=== PATIENT | female | born 2005 | race Two or more races ===

== ENCOUNTER → 2025-01-10 | Outpatient (CLI) | payer MEDICAID, SELFPAY ==
--- NOTE | 2025-01-10 09:09 | XR_ITS ---
Examination: Lumbar spine, 5 views Technique: Lumbar spine AP, lateral, coned lateral lower lumbar spine, bilateral obliques 5 views Exam date and time: January 10, 2025, 0924 hours INDICATIONS: Low back pain years. FINDINGS: Satisfactory alignment lumbar vertebral bodies No lumbar fracture. No lumbar degenerative disc disease No spondylolisthesis IMPRESSION: No lumbar fracture No lumbar degenerative disc disease
== END | disposition home or self-care (01) ==
PROVIDERS: PCP Physician Assistant; Referring Provider Chiropractor; Visit Provider Chiropractor
DX: M54.50 Low back pain, unspecified (principal)
CPT/HCPCS: 72110

== ENCOUNTER 2025-02-14 11:56 | Emergency (ER) | payer MEDICAID, SELFPAY ==
[2025-02-14 12:38] VITALS: BP 137/86; PULSE 108; RESP 18; TEMP 37.1; O2SAT 99; BMI 46.3
[2025-02-14] MEDS: FLUCONAZOLE 150 MG TABLET PO (12:51)
--- NOTE | 2025-02-14 12:59 | PD.EDFMALE ---
ED Female Urogenital RME/HPI General Chief complaint: Urogenital-Female Stated complaint: VAG PAIN Time Seen by Provider: 02/14/25 12:24 Source: patient Arrival date/time: 02/14/25 11:56 19-year-old female with no known medical history presents to the emergency room with a chief complaint of white stringy discharge and peeling in her vaginal area x 3 days Mode of arrival: ambulatory Limitations: no limitations Related Data Home Medications ?Medication ?Instructions ?Recorded ?Confirmed albuterol sulfate 90 mcg/actuation 2 puff inhalation Q6H PRN 07/09/17 01/26/20 aerosol inhaler Shortness Of Breath Or Wheezing ibuprofen 600 mg tablet 600 mg PO Q6H PRN Pain 01/26/20 01/26/20 Previous Rx's ?Medication ?Instructions ?Recorded hydrocodone 5 mg-acetaminophen 325 1 tab PO TID #15 tabs 01/26/20 mg tablet (Bigler) naproxen 500 mg tablet (Naprosyn) 500 mg PO BID #60 tabs 01/26/20 montelukast 10 mg tablet 10 mg PO QDAY #30 tabs 07/07/20 (Singulair) sulfamethoxazole 800 1 tab PO BID #14 tabs 02/14/25 mg-trimethoprim 160 mg tablet (Bactrim DS) Allergies Allergy/AdvReac Type Severity Reaction Status Date / Time No Known Allergies Allergy Verified 07/07/20 21:03 Review of Systems Review of Systems Systems Reviewed: All systems reviewed, normal except as documented Constitutional Constitutional: Reports system reviewed and no additional complaints, except as documented, Denies fatigue, Denies fever(s), Denies headache(s) and Denies weakness Eyes Eyes: Reports system reviewed and no additional complaints, except as documented, Denies blurry vision and Denies change in vision ENT Ears, Nose, Mouth, and Throat: Reports system reviewed and no additional complaints, except as documented, Denies otalgia, Denies headache(s), Denies nasal congestion, Denies throat swelling and Denies vertigo Cardiovascular Cardiovascular: Reports system reviewed and no additional complaints, except as documented, Denies chest pain, Denies dyspnea and Denies dyspnea on exertion Respiratory Respiratory: Reports system reviewed and no additional complaints, except as documented, Denies chest congestion, Denies cough, Denies dyspnea, Denies dyspnea on exertion and Denies wheezing Gastrointestinal Gastrointestinal: Reports system reviewed and no additional complaints, except as documented, Denies abdominal pain, Denies cramping, Denies nausea and Denies vomiting Genitourinary Genitourinary: Reports system reviewed and no additional complaints, except as documented, Reports vaginal discharge, Reports vaginal dryness, Reports vaginal odor and Reports vaginal pruritus Musculoskeletal Musculoskeletal: Reports system reviewed and no additional complaints, except as documented and Denies back pain Integumentary/Breasts Skin/Breast: Reports system reviewed and no additional complaints, except as documented and Denies wounds Neurologic Neurologic: Reports system reviewed and no additional complaints, except as documented, Denies confusion, Denies headache(s), Denies lack of coordination, Denies vertigo and Denies weakness Psychiatric Psychiatric: Reports system reviewed and no additional complaints, except as documented, Denies anxiety, Denies confusion, Denies depression, Denies paranoia, Denies suicidal ideation and Denies tactile hallucinations Endocrine Endocrine: Reports system reviewed and no additional complaints, except as documented and Denies fatigue Hematologic/Lymphatic Hematologic/Lymphatic: Reports system reviewed and no additional complaints, except as documented and Denies lymphadenopathy Allergic/Immunologic Allergic/Immunologic: Reports system reviewed and no additional complaints, except as documented, Denies throat swelling, Denies urticaria and Denies wheezing Past Medical History Past Medical History CARDIAC: Negative Cardiac Disorders or Congestive Heart Failure RESPIRATORY: Positive Asthma; Negative Chronic Obstructive Pulmonary Disease (COPD), Smoking or Intubation GASTROINTESTINAL: Positive Obesity; Negative Gastrointestinal Disorders GENITOURINARY: Negative Renal Disease REPRODUCTIVE: Negative Previous Pregnancies MENOPAUSE AGE: 10 ENDOCRINE: Negative Diabetes Mellitus Type 1 or Diabetes Mellitus Type 2 HEMATOLOGIC: Negative Sickle Cell Disease OTHER HISTORY: Negative Hospitalization Social History SMOKING STATUS: Never smoker SUBSTANCE USE: does not use ED Exam General Limitations: Present no limitations General appearance: Present alert and in no apparent distress Head Head exam: Present atraumatic Eye Eye exam: Present normal appearance, PERRL and EOMI ENT ENT exam: Present normal exam, normal oropharynx and mucous membranes moist Neck Neck exam: Present normal inspection, full ROM and trachea midline Chest Chest inspection: Present normal inspection and symmetric chest wall rise Respiratory Respiratory exam: Present normal lung sounds bilaterally Cardiovascular Cardiovascular exam: Present regular rate, normal rhythm and normal heart sounds Abdominal Exam Abdominal exam: Present soft and normal bowel sounds Extremities Exam Extremities exam: Present normal inspection and full ROM Back Exam Back exam: Present normal inspection and full ROM Neurological Exam Neurological exam: Present alert, oriented X3 and CN II-XII intact Psychiatric Psychiatric exam: Present normal affect and normal mood Skin Skin exam: Present warm, dry, intact and normal color Course Quality Measures none Orders Category Date Time Status Fluconazole [Diflucan] Med 02/14/25 12:38 Discontinued 150 mg PO X1 ONE Vital Signs Vital signs: Vital Signs Temperature 98.7 F 02/14/25 12:38 Pulse Rate 108 H 02/14/25 12:38 Respiratory Rate 18 02/14/25 12:38 Blood Pressure 137/86 H 02/14/25 12:38 Pulse Oximetry (%) 99 02/14/25 12:38 Oxygen Delivery Method Room Air 02/14/25 12:38 Urogenital - Female MDM Narrative MDM Narrative:: 19-year-old female with no known medical history presents to the emergency room with a chief complaint of white stringy discharge and peeling in her vaginal area x 3 days Patient is hemodynamically stable and in no apparent distress Patient states the stringy discharge has been going on for the last 3 days and have progressively gotten worse. Patient was discharged and educated to follow-up with primary care provider in the next 24 to 48 hours and return to the emergency room for any evidence of worsening signs or symptoms Patient data External records reviewed:: [facility] previous records Clinical information provided by:: patient Social determinants that could affect healthcare access:: none Patient has the following chronic illnesses:: No chronic illness How is presenting disease/condition affected by chronic disease/condition?: no chronic disease Evaluation data The following diagnostics were reviewed and interpreted by me:: lab results and radiology exam(s) Lab and/or radiology exams considered but not ordered:: Labs and radiology exams considered and ordered Interpretation Summary: N/A Medications / Prescriptions Medications or Prescriptions considered but not ordered:: Medication given Medication administrations:: Medication Administration History Discontinued Medications Fluconazole (Fluconazole 150 Mg Tablet) 150 mg PO X1 ONE Stop: 02/14/25 12:39 Last Admin: 02/14/25 12:51 Dose: 150 mg Documented By: OA Medication given Consultations Consultation(s) initiated? (list below): No Diagnosis Urogenital Female Differential Diagnosis: urinary tract infection, bacterial vaginosis and other (Use infection) Most likely diagnosis given after review of the tests above:: Vaginal candidiasis Admission Indicated Admission indicated?: not indicated Admission Request Was there a request for admission?: No Disposition Plan Disposition Plan: Discharge Discharge Attestation Discharge Attestation: The patient and all family members were given an opportunity to ask questions and understood the discharge instructions. Discharge instructions specifically effects, indications for sooner follow up or return to the emergency department, and the expected course of current diagnosis. Patient condition: Stable Discharge Plan Plan Patient Disposition: HOME (Self Care) Discharge Disposition comment: Stable Prescriptions/Referrals Prescriptions/Med Rec: New sulfamethoxazole-trimethoprim [Bactrim DS] 800-160 mg tablet 1 tab PO BID Qty: 14 0RF No Action albuterol sulfate 90 mcg/actuation Hfa Aerosol Inhaler 2 puff INHALATION Q6H PRN (Reason: Shortness Of Breath Or Wheezing) montelukast [Singulair] 10 mg tablet 10 mg PO QDAY Qty: 30 0RF ibuprofen 600 mg Tablet 600 mg PO Q6H PRN (Reason: Pain) naproxen [Naprosyn] 500 mg tablet 500 mg PO BID Qty: 60 0RF hydrocodone-acetaminophen [Bigler] 5-325 mg tablet 1 tab PO TID MDD 3 Qty: 15 0RF Problem List Clinical Impression: Bacterial vaginosis Patient/Caregiver Discharge Instructions Education Materials: Bacterial Vaginosis Additional Instructions: Please follow-up with your primary care provider in the next 24 to 48 hours For any evidence of worsening signs or symptoms return the emergency room immediately Print Language: Chadian Stand Alone Forms: Yu Award Info., Work/School Release, Patient Portal Info Letter
== END 2025-02-14 20:07 | disposition home or self-care (01) ==
LOC: SERX 14:01
PROVIDERS: Emergency Provider Emergency Medicine; PCP Physician Assistant
DX: N76.0 Acute vaginitis (principal); B96.89 Other specified bacterial agents as the cause of diseases classified elsewhere
CPT/HCPCS: 99281; A9270

== ENCOUNTER → 2025-02-20 | Outpatient (CLI) | payer MEDICAID, SELFPAY ==
--- NOTE | 2025-02-20 | XR_ITS ---
Examination: Foot, left, 3 views Technique: AP, oblique, lateral views foot, 3 views Date and time of exam: February 20, 2025, 1148 hours INDICATIONS: Left foot and ankle pain 3 months. FINDINGS: Adequate bone density. No fracture or dislocation. No plantar or posterior bony calcaneal spurs IMPRESSION: Negative for osseous abnormality
--- NOTE | 2025-02-20 | XR_ITS ---
EXAMINATION: Ankle, left 3 views. Technique: Ankle AP, oblique, lateral 3 views Date and time of exam: February 20, 2025, 1148 hours INDICATIONS: Left ankle pain beginning 3 months ago. FINDINGS: No fracture or dislocation. No foreign body IMPRESSION: Negative for osseous abnormality
== END | disposition home or self-care (01) ==
LOC: CDIM 11:20
PROVIDERS: Referring Provider Physician Assistant; Visit Provider Physician Assistant
DX: M79.672 Pain in left foot (principal); M25.572 Pain in left ankle and joints of left foot
CPT/HCPCS: 73610; 73630